=== PATIENT | male | born 1945 | race Caucasian/White ===

== ENCOUNTER 2021-12-30 08:25 | Outpatient (CLI) | payer BC, SELFPAY | END 2021-12-30 08:26 | disposition home or self-care (01) | LOC: LKVREF 01-03 15:01 | PROVIDERS: Visit Provider Emergency Medicine | DX: I10 Essential (primary) hypertension (principal) | CPT/HCPCS: 80061 ==

== ENCOUNTER 2022-10-23 08:14 | Outpatient (CLI) | payer BC, SELFPAY | END 2022-10-23 08:15 | disposition home or self-care (01) | LOC: NFLDREF 16:24 | PROVIDERS: PCP Emergency Medicine; Referring Provider Emergency Medicine; Visit Provider Emergency Medicine | DX: Z00.00 Encounter for general adult medical examination without abnormal findings (principal); E78.5 Hyperlipidemia, unspecified; I10 Essential (primary) hypertension; Z12.5 Encounter for screening for malignant neoplasm of prostate | CPT/HCPCS: 80053; 80061; 84153 ==

== ENCOUNTER 2023-01-09 08:00 | Outpatient (CLI) | payer BC, SELFPAY | END 2023-01-09 08:01 | disposition home or self-care (01) | LOC: NFLDREF 01-11 12:35 | PROVIDERS: PCP Emergency Medicine; Referring Provider Emergency Medicine; Visit Provider Emergency Medicine | DX: E87.5 Hyperkalemia (principal) | CPT/HCPCS: 84132 ==

== ENCOUNTER 2023-11-14 09:10 | Outpatient (CLI) | payer BC, SELFPAY ==
--- OUTSIDE RECORDS SUMMARY | 2023-11-14 09:12 | XMS_ITS | Encounter Summary ---
Author Organization [place] Address [address] [place] [id number] Care Team Providers Care Loan Specialist Name Role Phone [facility] Primary Care Provider Encounter Details Date Type Department Care Team (Latest Contact Info) Description 09/16/2023 Travel Social History Tobacco Use Types Packs/Day Years Used Date Smoking Tobacco: Never Assessed Adolescent Education Answer Date Record ed Getting School Help Needed Not on file 02/28 Sex and Gender Information Value Date Recorded Sex Assigned at Not on file Gender Identity Not on file Sexual Orientation Not on file documented as of this encounter Plan of Treatment Not on file documented as of this encounter Visit Diagnoses Not on filedocumented in this encounter Care Teams Loan Specialist Relationship Specialty Start Date End Date [facility] [address] [place] [address] PCP - General 09/16/23 documented as of this encounter
--- OUTSIDE RECORDS SUMMARY | 2023-11-14 09:12 | XMS_ITS | Clinical Summary ---
Author Organization [place] Address [address] [place] [address]. [place] [address] Care Team Providers Care Etcher Enameling Name Role Phone [facility] Primary Care Provider Allergies No known active allergies Medications Medication Sig Dispensed Refills Start Date End Date Status KENALOG 40 MG/ML IJ SUSPIndications:Pain in the foot,Sinus tarsi syndrome 40 MG 1 TIME ONLY 1 0 10/17/2008 Active Encounters Date Type Department Care Team Description 09/16/2023 4:17 PM CDT - 09/16/2023 7:32 PM CDT [facility] Emergency Dept [address] [place] [address] Hi Villa MD Fall, initial encounter; Closed head injury, initial encounter; Facial laceration, initial encounter; Other displaced fracture of base of first metacarpal bone, right hand, initial encounter for closed fracture; Rib pain on left side Discharge Disposition: Home or Self Care 09/16/2023 Travel from Last 3 Months Immunizations Name Administration Dates Next Due TDAP (Adacel,Boostrix) 09/16/2023 Social History Tobacco Use Types Packs/Day Years Used Date Smoking Tobacco: Never Assessed Adolescent Education Answer Date Record ed Getting School Help Needed Not on file 02/28 Sex and Gender Information Value Date Recorded Sex Assigned at Not on file Gender Identity Not on file Sexual Orientation Not on file Last Filed Vital Signs Vital Sign Reading Time Taken Comments Blood Pressure 170/102 09/16/2023 4:51 PM CDT Pulse 69 09/16/2023 4:30 PM CDT Temperature 36.2 ??C (97.1 ??F) 09/16/2023 4:18 PM CD T Respiratory Rate 18 09/16/2023 4:26 PM CDT Oxygen Saturation 99% 09/16/2023 4:51 PM CDT Inhaled Oxygen Concentration - - Weight 63 kg (139 lb) 09/16/2023 4:18 PM CDT Height 157.5 cm (5' 2) 09/16/2023 4:18 PM CDT Body Mass Index 25.42 09/16/2023 4:18 PM CDT Plan of Treatment Health Maintenance Due Date Last Done Comments ADVANCE CARE PLANNING 1947 ANNUAL REVIEW OF HM ORDERS 1945 GLUCOSE 1945 HEPATITIS C SCREENING 10/18/1965 LIPID 1987 ZOSTER IMMUNIZATION (1 of 2) 10/18/1997 RSV VACCINE ( & 60+) (1 - 1-dose 60+ series) 2007 FALL RISK ASSESSMENT 10/18/2012 MEDICARE ANNUAL WELLNESS VISIT 10/18/2012 Pneumococcal Vaccine: 65+ Years (1 of 1 - PCV) 10/18/2012 COVID-19 Vaccine (5 - season) 2023 03/16/2022, 03/31/2021, 07/26/2020, Additional history exists PHQ-2 (once per calendar year) 2023 INFLUENZA VACCINE (#1) 2024 DTAP/TDAP/TD IMMUNIZATION (3 - Td or Tdap) 09/15/2033 09/16/2023, 09/30/2014 COLORECTAL CANCER SCREENING Discontinued sDNA (Cologuard) Discontinued 10/04/[address] COLONOGRAPHY Discontinued FIT Discontinued FLEX SIG Discontinued HPV IMMUNIZATION Aged Out No longer e ligible based on patient's age to complete this topic IPV IMMUNIZATION Aged Out No longer e ligible based on patient's age to complete this topic MENINGITIS IMMUNIZATION Aged Out No l onger eligible based on patient's age to complete this topic RSV MONOCLONAL ANTIBODY Aged Out No l onger eligible based on patient's age to complete this topic Procedures Procedure Name Priority Date/Time Associated Diagnosis Comments XR HAND RIGHT G/E 3 VIEWS STAT 09/16/2023 5:24 PM CDT XR RIBS AND CHEST LEFT 3 VIEWS STAT 09/16/2023 5:[address] HEAD W/O CONTRAST STAT 09/16/2023 5:10 PM CDT from Last 3 Months Results * XR Hand Right G/E 3 Views (09/16/2023 5:24 PM CDT) Anatomical Region Laterality Modality Hand, Wrist Right Digital Radiogra phy 09/16/2023 5:24 PM CDT Impressions 09/16/2023 5:29 PM CDT IMPRESSION: Normal alignment. Acute minimally displaced fracture of the first metacarpal base. 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 Narrative 09/16/2023 5:29 PM CDT EXAM: XR HAND RIGHT G/E 3 VIEWS LOCATION: [facility] DATE: 09/16/2023 INDICATION: fall, hand injury, tenderness over snuffbox COMPARISON: None. Procedure Note Brett Alexander MD - 09/16/2023 EXAM: XR HAND RIGHT G/E 3 VIEWS LOCATION: [facility] DATE: 09/16/2023 INDICATION: fall, hand injury, tenderness over snuffbox COMPARISON: None. IMPRESSION: Normal alignment. Acute minimally displaced fracture of thefirst metacarpal base. Mild degenerative arthritis involving the first CMCand MCP joints and some of the IP joints. Mike Aguilar PA-C [facility] DIAGNOSTIC IMAGI NG ORDERABLES * Ribs XR, unilat 3 views + PA chest, left (09/16/2023 5:23 PM CDT) Anatomical Region Laterality Modality Chest Left Digital Radiogra phy 09/16/2023 5:23 PM CDT Impressions 09/16/2023 5:27 PM CDT IMPRESSION: No acute left rib fracture. No pleural effusion. No pneumothorax. No infiltrate. Calcifications projecting over the left and right abdomen are nonspecific, some could represent retracted stones. Degenerative changes cervical spine. Narrative 09/16/2023 5:27 PM CDT EXAM: XR RIBS AND CHEST LEFT 3 VIEWS LOCATION: [facility] DATE: 09/16/2023 INDICATION: fall, rib pain and tenderness COMPARISON: None. Procedure Note Brett Alexander MD - 09/16/2023 EXAM: XR RIBS AND CHEST LEFT 3 VIEWS LOCATION: [facility] DATE: 09/16/2023 INDICATION: fall, rib pain and tenderness COMPARISON: None. IMPRESSION: No acute left rib fracture. No pleural effusion. Nopneumothorax. No infiltrate. Calcifications projecting over the left andright abdomen are nonspecific, some could represent retracted stones.Degenerative changes cervical spine. Mike Aguilar PA-C [facility] DIAGNOSTIC IMAGI NG ORDERABLES * CT Head w/o Contrast (09/16/2023 5:10 PM CDT) Anatomical Region Laterality Modality Head, SUBRAD CT NEURO, SUBRA D CT NEURO, UMP CT NEURO, RAD CT Computed Tomography 09/16/2023 5:10 PM CDT Impressions 09/16/2023 5:42 PM CDT IMPRESSION: 1. ??No acute intracranial process. Narrative 09/16/2023 5:42 PM CDT EXAM: CT HEAD W/O CONTRAST LOCATION: [facility] DATE: 09/16/2023 INDICATION: fall, head injury COMPARISON: None. TECHNIQUE: Routine CT Head without IV contrast. Multiplanar reformats. Dose reduction techniques were used. FINDINGS: INTRACRANIAL CONTENTS: No intracranial hemorrhage, extraaxial collection, or mass effect. ??No CT evidence of acute infarct. Mild presumed chronic small vessel ischemic changes. Mild generalized volume loss. No hydrocephalus. VISUALIZED ORBITS/SINUSES/MASTOIDS: No intraorbital abnormality. No paranasal sinus mucosal disease. No middle ear or mastoid effusion. BONES/SOFT TISSUES: Left inferior frontal scalp and left periorbital soft tissue contusion. No acute displaced calvarial fracture. Procedure Note Pavan Bird MD - 09/16/2023 EXAM: CT HEAD W/O CONTRAST LOCATION: [facility] DATE: 09/16/2023 INDICATION: fall, head injury COMPARISON: None. TECHNIQUE: Routine CT Head without IV contrast. Multiplanar reformats.Dose reduction techniques were used. FINDINGS: INTRACRANIAL CONTENTS: No intracranial hemorrhage, extraaxial collection,or mass effect. No CT evidence of acute infarct. Mild presumed chronicsmall vessel ischemic changes. Mild generalized volume loss. Nohydrocephalus. VISUALIZED ORBITS/SINUSES/MASTOIDS: No intraorbital abnormality. Noparanasal sinus mucosal disease. No middle ear or mastoid effusion. BONES/SOFT TISSUES: Left inferior frontal scalp and left periorbital softtissue contusion. No acute displaced calvarial fracture. IMPRESSION: 1. No acute intracranial process. Mike Aguilar PA-C [facility] CT ORDERABLES from Last 3 Months Care Teams Etcher Enameling Relationship Specialty Start Date End Date [facility] [address] [place] [address] PCP - General 09/16/23
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
--- OUTSIDE RECORDS SUMMARY | 2023-11-14 09:12 | XMS_ITS | Referral Summary ---
Author Organization [place] Address [address] [place] [address]. [place] [address] Care Team Providers Care Commercial Art Instructor Name Role Phone Clinic, [facility] Primary Care Provider Encounters Date Type Department Care Team Description 09/16/2023 Travel 09/16/2023 4:17 PM CDT - 09/16/2023 7:32 PM CDT Emergency [facility] Emergency Dept [address] [place] [address] Hi Villa MD Fall, initial encounter; Closed head injury, initial encounter; Facial laceration, initial encounter; Other displaced fracture of base of first metacarpal bone, right hand, initial encounter for closed fracture; Rib pain on left side Discharge Disposition: Home or Self Care from Last 3 Months Allergies No known active allergies Medications Medication Sig Dispensed Refills Start Date End Date Status KENALOG 40 MG/ML IJ SUSPIndications:Pain in the foot,Sinus tarsi syndrome 40 MG 1 TIME ONLY 1 0 10/17/2008 Active Immunizations Name Administration Dates Next Due TDAP [...] 09/16/2023 4:18 PM CDT Plan of Treatment Not on file Procedures Procedure Name Priority Date/Time Associated Diagnosis [...] XR HAND RIGHT G/E 3 VIEWS LOCATION: [facility] DATE: 09/16/2023 INDICATION: fall, hand injury, tenderness over snuffbox COMPARISON: None. Procedure Note Brett Alexander MD - 09/16/2023 EXAM: XR HAND RIGHT G/E 3 VIEWS LOCATION: [facility] DATE: 09/16/2023 INDICATION: fall, hand injury, tenderness over snuffbox COMPARISON: None. IMPRESSION: Normal alignment. Acute minimally displaced fracture of thefirst metacarpal base. Mild degenerative arthritis involving the first CMCand MCP joints and some of the IP joints. Mike Aguilar PA-C [facility] [facility] [place] ORDERABLES * Ribs XR, [...] RIBS AND CHEST LEFT 3 VIEWS LOCATION: [facility] DATE: 09/16/2023 INDICATION: fall, rib pain and tenderness COMPARISON: None. Procedure Note Brett Alexanedr MD - 09/16/2023 EXAM: XR RIBS AND CHEST LEFT 3 VIEWS LOCATION: [facility] DATE: 09/16/2023 INDICATION: fall, rib pain and tenderness COMPARISON: None. IMPRESSION: No acute left rib fracture. No pleural effusion. Nopneumothorax. No infiltrate. Calcifications projecting over the left andright abdomen are nonspecific, some could represent retracted stones.Degenerative changes cervical spine. Mike CARRASCO-Juan [facility] [place] [facility] NG ORDERABLES * CT Head w/o Contrast (09/16/2023 5:10 PM CDT) Anatomical Region Laterality Modality Head, SUBRAD CT NEURO, SUBRA D CT NEURO, UMP CT NEURO, RAD CT Computed Tomography 09/16/2023 5:10 PM CDT Impressions 09/16/2023 5:42 PM CDT IMPRESSION: 1. ??No acute intracranial process. Narrative 09/16/2023 5:42 PM CDT EXAM: CT HEAD W/O CONTRAST LOCATION: [facility] DATE: 09/16/2023 INDICATION: fall, head [...] 09/16/2023 EXAM: CT HEAD W/O CONTRAST LOCATION: [facility] DATE: 09/16/2023 INDICATION: fall, head [...] ORDERABLES from Last 3 Months Care Teams Commercial Art Instructor Relationship Specialty Start Date End Date Clinic, [facility] [address] [place] [address] PCP - General 09/16/23
--- OUTSIDE RECORDS SUMMARY | 2023-11-14 09:12 | XMS_ITS | Continuity of Care Document ---
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 It does not include entries that were removed or entered in error. 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 Diagnosis: ICD-10-CM Z01.118 Encntr for exam of ears and hearing w oth abnormal findings Active Diagnosis [facility] Diagnosis: ICD-10-CM H25.813 Combined forms of age-related cataract, bilateral Active Diagnosis [facility] Diagnosis: ICD-10-CM H90.5 Unspecified sensorineural hearing loss Active Diagnosis [facility] Medications Combined list of outpatient medications from [facility] facilities.Medications provided include 1) outpatient medications from the last 15 months, and 2) patient-reported medications. Medication Details Route Status Patient Instructions Prescription Expires Prescription Number Last Dispense Date Ordering Provider Order Date Order Qty Source LATANOPROST 0.005% SOLN,OPH LATANOPR OST 0.005% SOLN,OPH Active INSTILL 1 DROP IN BOTH EYES AT BEDTIME TO LOWER EYE PRESSURE TO LOWER EYE PRESSURE Jul 30, 2023 7.5 Jul 30, 2024 [id number] Nov 01, 2023 HUEY REGAN [facility] OPHTHA LMIC ACTIVE 07/30/2024 [id number] Maria REGAN 2023 7.5 [facility] Encounters Combined list of: 1) Encounters from [facility] facilities going back up to thelast 18 months. 2) Encounters from the Department [facility] facilities going back up to 280 months. Location Location Details Encounter Type Encounter Number Reason For Visit Attending Provider ADM Date DC Date Status Disposition Source [facility] Outpatient Encounter [id number] 10/11 [facility] PRO PHONE CALL 11-20 MIN [id number] Diagnos is: ICD-10- CM H90.5 Unspeci fied sensori neural hearing loss
CLAUDETTE DELACRUZ C 11/01 [facility] IS [facility] HEARING AID FITTING/CH ECKING [id number] Diagnos is: ICD-10- CM H90.5 Unspeci fied sensori neural hearing loss
BY[place] HILL 11/18 [facility] OFFICE O/P NEW LOW 30 MIN [id number] Diagnos is: ICD-10- CM H25.813 Combine d forms of age-rel ated catarac t, bilater al
LUNA REGAN 07/[address] [facility] IS [facility] Outpatient Encounter [id number] 08/07 [facility] IS [facility] HEARING AID EXAM BOTH EARS [id number] Diagnos is: ICD-10- CM Z01.118 Encntr for exam of ears and hearing w oth abnorma l finding s
ROSARIO HERNANDEZ AEL F 08/20 [facility] IS [facility] CONFORMITY EVALUATION [id number] Diagnos is: ICD-10- CM H90.3 Sensori neural hearing loss, bilater al
ROSARIO HERNANDEZ AEL F 09/17 [facility] OFFICE O/P EST LOW 20 MIN [id number] Diagnos is: ICD-10- CM H40.113 1 Primary open-an gle glaucom a, bilater al, mild stage<b r/> LUNA REGAN 10/29 [facility] Plan of Care List of future care activities from [facility] facilities. Additional future care activities may be listed in the Assessment and Plan section. Date/Time Care Activity Care Activity Detail Facili ty 11/29/2023 AMBULATORY - SURGERY AMBULATORY - SURGERY [facility] 11/29/2023 AMBULATORY - SURGERY AMBULATORY - SURGERY [facility] 10/30/2023 Consult Order OPHTHALMOLOGY-GE DAPHNE OUTPT Cons Race Starter's Choice GLEN SOTOMAYOR
--- OUTSIDE RECORDS SUMMARY | 2023-11-14 09:13 | XMS_ITS | Encounter Summary ---
Author Name [facility] [place] Address [address] [place] [address] Support Name Relationship Address Phone JONATHAN NITZA LENCHO Next of Kin JORJE [place], [place] [phone] NITZA CASTILLO [place] [address] Insurance Providers: All historical and current Section Date Range: From patient's date of to the date document was created. This section includes the names of all active insurance providers for the patient. Insurance Provider Type of Coverage Plan Name Start of Policy Coverage End of Policy Coverage Group Number Member ID Insurance Provider's Telephone Number Policy Moyer's Name Patient's Relationship to Policy Moyer MEDICARE (WNR) MEDICARE (M) PART B Nov 11, 2013 PART B [id number] [phone] LETICIA CASTILLO PATIENT MEDICARE (WNR) MEDICARE (M) PART A Jan 12, 2013 PART A [id number] [phone] LETICIA CASTILLO PATIENT Selected Encounter This section includes the information on record at [place] for the Encounter. Date/Time Encounter Type Encounter Description Reason Provider Source September 18, 2023 12:30 PM CONFORMITY EVALUATION AUDIOLOGY ICD-10-CM H90.3 Sensorineural hearing loss, bilateral ELEAZAR HERNANDEZ [place] Encounter Template Text not used by [place] Assessments - Encounter Diagnoses This section includes the primary and secondary diagnoses documented for the Encounter. Date/Time Primary/Secondary Diagnosis Diagnosis Name Provider Source September 18, 2023 04:08 PM PRIMARY Sensorineural hearing loss, bilateral ELEAZAR HERNANDEZ [facility] September 18, 2023 04:08 PM SECONDARY Encounter for fitting and adjustment of hearing aid ELEAZAR HERNANDEZ [facility] Plan of Treatment: Future Appointments (+ 6 months) and Future Tests (+/- 45 days) The Plan of Treatment section includes future care activities for the patient [facility] This section includes future appointments and future orders which are active, pending or scheduled. Future Appointments This section includes appointments that were scheduled to occur 6 months from the date of the Encounter, up to a maximum of 20 appointments. The data comes from all [facility]. Appointment Date/Time Appointment Type Appointme nt Facility Name Oct 30, 2023 01:00 PM AMBULATORY - SURGERY [facility] Nov 29, 2023 08:00 AM AMBULATORY - SURGERY [facility] Nov 29, 2023 08:30 AM AMBULATORY SURGERY [facility] Active, Pending, and Scheduled Orders This section includes a listing of several types of active, pending, and scheduled orders, including clinic medications orders, diagnostic test orders, procedure orders and consult orders; where the start date of the order is 45 days before the date of the Encounter or 45 days after the date of theEncounter. The data comes from all [facility]. Test Date/Time Test Type Test Details Facility Name Oct 30, 2023 01:32 PM Consult Order OPHTHALMOL OGY-GENERAL OUTPT Cons Roll Clamp Operator's Choice [facility] Encounter Notes: All associated encounter notes This section contains the clinical notes associated to the Encounter. Date/Time Encounter Note(s) Provider Source September 18, 2023 12:20 PM AUDIOLOGY NOTE: LOCAL TITLE: AUDIOLOGY CLINIC NOTE STANDARD TITLE: AUDIOLOGY NOTE DATE OF NOTE: SEPTEMBER 18, 2023@12:20 ENTRY DATE: SEPTEMBER 18, 2023@12:20:31 AUTHOR: ELEAZAR HERNANDEZ EXP COSIGNER: URGENCY: STATUS: COMPLETED AUDIOLOGY CLINIC NOTE Has ADDENDA Hearing Aid Fitting Sensorineural hearing loss, bilateral. Total patient time: 60 minutes Subjective: The was seen for a hearing aid fitting and issuance of two Phonak Audeo L90-R hearing aids (S#: [id number] (R)/ [id number] (L)). The is an experienced hearing aid user. Objective: Otoscopy revealed clear ear canals and visible tympanic membranes. Custom molds were judged to be a good fit. Feedback global engineering manager was run prior to programming. The hearing aids were adjusted to approximate NAL-NL2 speech mapping targets using real-ear probe microphone measures (conformity evaluation). The devices were programmed to 100% target, per preference. The reported positive subjective impression about the sound quality and fit of the hearing aids. They reported tolerable and comfortable impression with extraneous sounds, as well as their own voice. Start-up program is P1, [employer] ([email or web address]) OS, 5.0. No second memory was added at this time. Assigned the program button as the volume control with binaural sync, and it's use was explained and practiced. The streamer was successfully paired to 's cellular telephone and verified to work properly. Streamer/remote control functions for volume and bluetooth were also reviewed. Education was provided, utilizing standardized curriculum, for approximately 30 minutes regarding care, cleaning, maintenance, use of hearing aids and the trial period. Hearing aid insertion/removal was practiced. The was informed on the supply ordering procedure, water and dust resistance of hearing aids, battery life, and hearing aid features. The Unity's address was confirmed in [facility]. Acclimatization period, use of communication strategies and realistic expectations in light of the Unity's hearing status were discussed. Assessment: Educational needs, ability and readiness to learn, and barriers to successful education have been considered. Printed educational materials on use and care of hearing aids have been provided and were explained verbally to the Unity. The Unity verbalized understanding of information provided today and demonstrated the ability to perform necessary tasks for successful hearing aid use. We talked about sending the 's now back-up hearing aids ([id number] / [id number]) out for repair today. In the process of discussing them, the right canal lock broke off, so now I definitely want to send both out for repair for excessive battery drain and right earmold repair. I will send these off today. Plan: The was an active participant in today's appointment and was agreeable to the treatment plan: 1. The Unity was directed to call if soreness or problems arise. 2. The Unity was advised in regards to follow-up process for these hearing aids, including general follow-up instructions in the time of COVID. They were advised to contact the clinic if they have needs with either his hearing or his hearing aids going forward. 3. Back-up hearing aids mailed for repair today. Upon receipt, they can be mailed to the 's address on file. This treatment plan was discussed with the patient. The patient verbally demonstrated an understanding of the information provided and actively participated in the treatment plan. /jorge/ Rene Cordova Ph.D. Regional Telecommunications Specialist Chief, Audiology Signed: 09/18/2023 16:08 09/18/2023 ADDENDUM STATUS: COMPLETED Correction to plan: I had to submit two service requests for the right hearing aid. Upon receipt of earmold, hold for repaired hearing aids, then couple new earmold and mail. If the hearing aids arrive first, please hold for the earmold, then same story, couple and mail. /Rene Torres Ph.D. Regional Telecommunications Specialist Chief, Audiology Signed: 09/18/2023 17:23 09/28/2023 ADDENDUM STATUS: COMPLETED HOLDING RIGHT EARMOLD ON ABC UNTIL REPAIRED HEARING AIDS ARE RECEIVED COUPLE EARMOLD WITH HEARING AID AND MAIL TO THE ADDRESS ON FILE /jorge/ ELEAZAR Ramon [employer] HEALTH YARDING SUPERVISOR Signed: 09/28/2023 07:20 09/28/2023 ADDENDUM STATUS: COMPLETED COUPLING NEW RIGHT EARMOLD TO REPAIRED RIGHT HEARING AID. MAILING REPAIRED HEARING AIDS TO THE ADDRESS ON FILE /elsie [employer] HEALTH YARDING SUPERVISOR Signed: 09/28/2023 07:[address] [facility]
--- OUTSIDE RECORDS SUMMARY | 2023-11-14 09:13 | XMS_ITS | Encounter Summary ---
Author Name [facility] [place] [facility] [place] [facility] [place] Address [address] [place] [address] Support Name Relationship Address Phone JONATHAN NITZA LENCHO Next of Kin JORJE NEELA [place], [place] [phone] NITZA CASTILLO Emergency Contact I PARAG [place], [place] [phone] Insurance Providers: All historical and current Section [...] PART B Nov 11, 2013 PART B [id number] LETICIA CASTILLO PATIENT MEDICARE (WNR) MEDICARE (M) PART A Jan 12, 2013 PART A [id number] LETICIA CASTILLO PATIENT Selected Encounter This section includes the information on record at [place] for the Encounter. Date/Time Encounter Type Encounter Description Reason Provider Source Jul 30, 2023 01:00 PM OFFICE O/P NEW LOW 30 MIN OPTOMETRY ICD-10-CM H25.813 Combined forms of age-related cataract, bilateral REGAN,LEA IA M IHE Encounter Template Text not used by [facility] Assessments - Encounter Diagnoses This section includes the primary and secondary diagnoses documented for the Encounter. Date/Time Primary/Secondary Diagnosis Diagnosis Name Provider Source Jul 30, 2023 02:23 PM PRIMARY Combined forms of age-related cataract, bilateral REGAN,LEA IA M [facility] Jul 30, 2023 02:23 PM SECONDARY Benign neoplasm of left choroid REGANLEA CB Jul 30, 2023 02:23 PM SECONDARY Myopia, bilateral REGAN,LEA [facility] Jul 30, 2023 02:23 PM SECONDARY Presbyopia REGANLEA CB Jul 30, 2023 02:23 PM SECONDARY Regular astigmatism, bilateral REGAN,LEA [facility] Jul 30, 2023 02:23 PM SECONDARY Unspecified open-angle glaucoma, indeterminate stage REGANLEA Rios [facility] Plan of Treatment: Future Appointments (+ 6 months) and Future Tests (+/- 45 days) The Plan of Treatment section includes future care activities for the patient from all [place] [facility]. This section includes future appointments and future orders which are active, pending or scheduled. Future Appointments This section includes appointments that were scheduled to occur 6 months from the date of the Encounter, up to a maximum of 20 appointments. The data comes from all [place] treatment facilities. Appointment Date/Time Appointment Type Appointme nt Facility Name Aug 21, 2023 12:30 PM AMBULATORY - SURGERY [facility] September 18, 2023 12:30 PM AMBULATORY - SURGERY [facility] Oct 30, 2023 01:00 PM AMBULATORY - SURGERY [facility] Nov 29, 2023 08:00 AM AMBULATORY - SURGERY [facility] Nov 29, 2023 08:30 AM AMBULATORY - SURGERY [facility] Encounter Notes: All associated encounter notes This section contains the clinical notes associated to the Encounter. 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 Discussed option to continue with Dr. Kmi with [facility] or continue eye care with [facility]: Patient would like to be seen for eye care with [facility] in 3 months: will place order for this today. /jorge/ HUEY REGAN OD VENEER CUTTER Signed: 08/01/2023 16:58 HUEY REGAN [facility] Aug 01, 2023 04:52 PM ADDENDUM: LOCAL TITLE: Addendum STANDARD TITLE: ADDENDUM DATE OF NOTE: AUG 01, 2023@16:52:13 ENTRY DATE: AUG 01, 2023@16:52:14 AUTHOR: HUEY REGAN EXP COSIGNER: URGENCY: STATUS: COMPLETED See patient contact note from 08/01/2023: [facility] is [id number] for [place] eye [place] coverage per [facility] Scheduling Staff. Patient would like to be seen for eye care with [facility] in 3 months: will place order for this today. /jorge/ HUEY REGAN OD VENEER CUTTER Signed: 08/01/2023 16:54 Receipt Acknowledged By: 08/02/2023 11:15 /jorge/ KAJAL MONTGOMERY APRN, CASIMIRO FAMILY NURSE PRACTITIONER --- Original Document --- 07/30/23 OPTOMETRY CLINIC NOTE: Reviewed tech note today and agree except where noted and ADD: CC:Eye exam. Patient is followed by Amrik Kim, OD with [facility] for ophthalmological care including monitoring of glaucoma/ cataracts OU. Patient states that he takes latanoprost: QHS OU. Last dose of latanoprost OU was at midnight last night. Patient wants to order his [facility]op[facility] via the [facility]. Patient wants to continue care at [facility] with Dr. Kim, last appt ~ 3 months ago: is followed q [address] Kim. Wants to updated his glasses today. HPI:Patient denies any pain, double vision, transient blindness, sudden vision loss. Patient denies any flashing lights, curtain or veil over vision. Patient has no other concerns today. Eye meds: latanoprost QHS OU MALU:~ 3 months ago per patient with Dr. Kim @ [facility]. POHx: glaucoma/cataracts PMHx: per tech. FOhx: per tech. Systemic medications: rosuvastatin, lisinopril. Allergies: patient answered NKDA. Last Hgb A1c: unavailable. Pt oriented and alert x 3 Mood and affect normal Entering distance [facility] cc per tech : OD:20/20 OS:20/25-2 Cover test distance: ortho OU MR/ Final SRX today: OD: -0.75-0.50x 085 20/20-3 OS: -0.25 -1.75 x 045 20/20 ADD:+2.50 IOP: OD: 22 OS: 16 per tech DPAs: per tech SLEx (OU unless otherwise noted): Adnexa: clear Lids/Lashes: clear Conj: White and quiet Cornea: Clear/compact OU A/C: Deep and quiet Iris: flat, (-) rubeosis Lens: 1+ NSC with posterior vacuole centrally OD, posterior vacuole with PSC OS. Tear film: adequate Dilated eye exam: YES Fundus Exam (OU unless otherwise noted): ONH: 0.3 OD; 0.45 OS; Rim tissue well perfused and distinct OU OD: tilted insertion OD. OU: no edema, no pallor, no notch, no DH, no NVD. Macula: clear and flat; no hemes, no CSME. Vessels: Normal caliber; OU: no retinopathy, no occlusion, no emboli, no hemes, no NVE, no VB. Vitreous: clear ; OU: no vitreous cell, no VH, no vitreous pigment. Periphery: Flat and intact with no holes or tears 360'; OU: no RT, no RD, no masses, no retinal break, no retinopathy, no hemes, no NVE. OS: flat c. nevus vs c. tesselation, 1.5 DD, at 6 oclock without retinal break, no RT, no RD. Assessment/Plan: 1.Cataracts, combined OU. Presurgical OU. Continue to monitor with Amrik Kim, OD with [facility] as scheduled in 3 months, sooner if any changes. 2. OAG, unspecifed stage OU. IOP today: Patient wishes to continue monitoring as scheduled in 3 months with Amrik Kim, OD with [facility]. Discussed importance of continuing latanoprost QHS OU as prescribed by Dr. Kim. Ordered latanoprost for today: QHS OU. 3. RE/ Presbyopia OU. Released updated glasses Rx OU with transitions/ AR/ uV protection/ tint due to cataracts OU. continue to monitor with Dr. Kim as scheduled, sooner if any changes. 4. C. tesselation inferiorly OS vs c. nevus OS. No retinal break, no RD, no RT, no SRF. Continue to monitor with Dr. Kim as scheduled in 3 months, sooner if any chnages. Reviewed exam findings OU including PLAN with patient. Educated patient about PLAN including symptoms of RT/ RD: RTC immediately if any loss of vision, shadows in vision, floaters, flashing lights, curtain or veil over vision and/or any other changes with either and/or both eyes. RTC: in 3 months as scheduled with Amrik Kim, OD with [facility], sooner if any changes. Will alert [facility] Scheduling Staff to continue [facility] care with Dr. Kim. RTC: with [facility] in 1 year for VTDMRX for glasses and eye meds. Is the patient legally blind? 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 EBMD = Epithelial basement membrane dystrophy CF = count fingers CVF = Confrontation visual smiley /es/ HUEY REGAN OD VENEER CUTTER Signed: 07/30/2023 14:23 Receipt Acknowledged By: 07/31/2023 06:45 /jorge/ KAJAL MONTGOMERY APRN, ELECTRICAL CONTROL ASSEMBLER FAMILY NURSE PRACTITIONER HUEY REGAN [facility] Jul 30, 2023 01:24 PM OPTOMETRY NOTE: LOCAL TITLE: OPTOMETRY CLINIC NOTE STANDARD TITLE: OPTOMETRY NOTE DATE OF NOTE: JUL 30, 2023@13:24 ENTRY DATE: JUL 30, 2023@13:24:11 AUTHOR: HUEY REGAN EXP COSIGNER: URGENCY: STATUS: COMPLETED OPTOMETRY CLINIC NOTE Has ADDENDA Reviewed tech note today and agree except where noted and ADD: CC:Eye exam. Patient is followed by Amrik Kim, OD with [facility] for ophthalmological care including monitoring of glaucoma/ cataracts OU. Patient states that he takes latanoprost: QHS OU. Last dose of latanoprost OU was at midnight last night. Patient wants to order his [facility]. Patient wants to continue care at [facility] with Dr. Kim, last appt ~ 3 months ago: is followed q [address] Kim. Wants to updated his glasses today. HPI:Patient denies any pain, double vision, transient blindness, sudden vision loss. Patient denies any flashing lights, curtain or veil over vision. Patient has no other concerns today. Eye meds: latanoprost QHS OU MALU:~ 3 months ago per patient with Dr. Kim @ [facility]. POHx: glaucoma/cataracts PMHx: per tech. FOhx: per tech. Systemic medications: rosuvastatin, lisinopril. Allergies: patient answered NKDA. Last Hgb A1c: unavailable. Pt oriented and alert x 3 Mood and affect normal Entering distance [facility] cc per tech : OD:20/20 OS:20/25-2 Cover test distance: ortho OU MR/ Final SRX today: OD: -0.75-0.50x 085 20/20-3 OS: -0.25 -1.75 x 045 20/20 ADD:+2.50 IOP: OD: 22 OS: 16 per tech DPAs: per tech SLEx (OU unless otherwise noted): Adnexa: clear Lids/Lashes: clear Conj: White and quiet Cornea: Clear/compact OU A/C: Deep and quiet Iris: flat, (-) rubeosis Lens: 1+ NSC with posterior vacuole centrally OD, posterior vacuole with PSC OS. Tear film: adequate Dilated eye exam: YES Fundus Exam (OU unless otherwise noted): ONH: 0.3 OD; 0.45 OS; Rim tissue well perfused and distinct OU OD: tilted insertion OD. OU: no edema, no pallor, no notch, no DH, no NVD. Macula: clear and flat; no hemes, no CSME. Vessels: Normal caliber; OU: no retinopathy, no occlusion, no emboli, no hemes, no NVE, no VB. Vitreous: clear ; OU: no vitreous cell, no VH, no vitreous pigment. Periphery: Flat and intact with no holes or tears 360'; OU: no RT, no RD, no masses, no retinal break, no retinopathy, no hemes, no NVE. OS: flat c. nevus vs c. tesselation, 1.5 DD, at 6 oclock without retinal break, no RT, no RD. Assessment/Plan: 1.Cataracts, combined OU. Presurgical OU. Continue to monitor with Amrik Kim, ELISEO with [facility] as scheduled in 3 months, sooner if any changes. 2. OAG, unspecifed stage OU. IOP today: Patient wishes to continue monitoring as scheduled in 3 months with Amrik Kim, OD with [facility]. Discussed importance of continuing latanoprost QHS OU as prescribed by Dr. Kim. Ordered latanoprost for today: QHS OU. 3. RE/ Presbyopia OU. Released updated glasses Rx OU with transitions/ AR/ uV protection/ tint due to cataracts OU. continue to monitor with Dr. Kim as scheduled, sooner if any changes. 4. C. tesselation inferiorly OS vs c. nevus OS. No retinal break, no RD, no RT, no SRF. Continue to monitor with Dr. Kim as scheduled in 3 months, sooner if any chnages. Reviewed exam findings OU including PLAN with patient. Educated patient about PLAN including symptoms of RT/ RD: RTC immediately if any loss of vision, shadows in vision, floaters, flashing lights, curtain or veil over vision and/or any other changes with either and/or both eyes. RTC: in 3 months as scheduled with Amrik Kim, OD with [facility], sooner if any changes. [facility] care with Dr[facility] Kim. RTC: with [facility] in 1 year for VTDMRX for glasses and eye meds. Is the patient legally blind? 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 Patient would like to be seen for eye care with [facility] in 3 months: will place order for this today. /jorge/ HUEY REGAN OD VENEER CUTTER Signed: 08/01/2023 16:54 Receipt Acknowledged By: * AWAITING SIGNATURE * KAJAL MONTGOMERY PATRICIA M [facility] Jul 30, 2023 12:54 PM OPHTHALMOLOGY TECH GINNA NOTE: LOCAL TITLE: DIPLOMATIC INTERPRETER/TRANSLATOR NOTE STANDARD TITLE: DIPLOMATIC INTERPRETER/TRANSLATOR NOTE DATE OF NOTE: JUL 30, 2023@12:54 ENTRY DATE: JUL 30, 2023@12:54:21 AUTHOR: ZOILA CANSECO EXP COSIGNER: URGENCY: STATUS: COMPLETED Eye Start Exam Patient: LETICIA CASTILLO Sex: MALE SSN: [id number] Birthdate: [birth year] Chief complaint: patient states I feel that my vision has changed and I can't get my glasses clean anymore I see doctor Judy in [place] to manage my glaucoma History of Present Illness: Location: Intensity: Duration: Problem List - Active - NONE FOUND Surgeries: SURGERIES - NONE FOUND Full Exam Eye Medications latanoprost ou qhs Allergies: No Allergy Assessment No new Allergies. Past Medical History: Hypertension High cholesterol Cancer Past eye history: Cataracts : OU Past eye surgeries: Denies all Social History: Alcohol use - Yes Tobacco use - No Family History: Eye disease: glaucoma High blood pressure Heart disease or stroke: Last refraction: Vision: OD:CC(with glasses) OD: 20/20 Pinhole: 20/ Near: 20/ Vision: OS:CC(with glasses) 0S: 20/25-2 Pinhole: 20/ Near: 20/ Current glasses: OD:-0.25 -0.75X85 Prism: OS:plano -1.75X42 Prism: Add: +2.50 Confrontational Smiley: Full to finger counting: Right: Yes Left: Yes Extra Ocular Movement: Normal Pupils: Right: Round Left: Round Size: Right: 4 Left: 4 React to light: Right: Yes Left: Yes Afferent pupil defect: Right:No Grade: Left: No Grade: Note: Intra-ocular pressure (IOP): OD: 22 OS: 16 iCare Dilation: mydriacyl 1% and neosynephrine OU Jul@13:06 /jorge/ ZOILA CANSECO OPHTHALMOLOGY HEALTH BUDDER Signed: 07/30/2023 13:07 ZOILA CANSECO [facility]OC
--- OUTSIDE RECORDS SUMMARY | 2023-11-14 09:13 | XMS_ITS | Encounter Summary ---
Author Name [facility] [place] Organization [place] Address [address] [place] [address] Support Name Relationship Address Phone JONATHAN NITZA LENCHO Next of Kin JORJE NEELA [place], [place] [phone] NITZA CASTILLO [place] [address] Insurance Providers: All historical and [...] PART B Nov 11, 2013 PART B [id number] [phone] LETICIA CASTILLO PATIENT MEDICARE (WNR) MEDICARE (M) PART A Jan 12, 2013 PART A [id number] [phone] LETICIA CASTILLO PATIENT Selected Encounter This section includes the information on record at [place] for the Encounter. Date/Time Encounter Type Encounter Description Reason Pro vider Source Aug 08, 2023 01:11 PM Outpatient Encounter OPTOMETRY IHE Encounter Template Text not used by [facility] Plan of Treatment: Future Appointments (+ 6 months) and Future Tests (+/- 45 days) The Plan of Treatment section includes future care activities for the patient from all [place] treatmentfacilities. This section includes future appointments and future orders which are active, pending or scheduled. Future Appointments This section includes appointments that were scheduled to occur 6 months from the date of the Encounter, up to a maximum of 20 appointments. The data comes from all [place] treatment facilities. Appointment Date/Time Appointment Type Appointme nt Facility Name Aug 21, 2023 12:30 PM AMBULATORY - SURGERY [facility] September 18, 2023 12:30 PM AMBULATORY - SURGERY [facility] Oct 30, 2023 01:00 PM AMBULATORY - SURGERY [facility] Nov 29, 2023 08:00 AM AMBULATORY - SURGERY [facility] Nov 29, 2023 08:30 AM AMBULATORY - SURGERY [facility] Encounter Notes: All associated encounter notes This section contains the clinical notes associated to the Encounter. Date/Time Encounter Note(s) Provider Source Aug 08, 2023 01:11 PM REPORT OF CONTACT: LOCAL TITLE: APPOINTMENT SCHEDULING NOTE STANDARD TITLE: REPORT OF CONTACT DATE OF NOTE: AUG 08, 2023@13:11 ENTRY DATE: AUG 08, 2023@13:11:24 AUTHOR: GUMARO ALANIS EXP COSIGNER: URGENCY: STATUS: COMPLETED Attempted to schedule Return to clinic (RTC) Contact attempt made to [place] 1st attempt Telephone 2nd attempt Letter - Sent letter by regular [place] mail to address on file: LETICIA CASTILLO [address] [address] Disposition order request after Aug Left message on voice mail to call back to this number [phone] Other: [facility] on [phone] If calls back, schedule appt for: [facility] TECH VISUAL FIELD for HVF PID [id number] and [facility] OPTOM W for HVF/VTD/RNFL OCT/Pachy PID [id number] /jorge/ GUMARO [facility] Signed: 08/08/2023 13:13 GUMARO ALANIS [facility]
--- OUTSIDE RECORDS SUMMARY | 2023-11-14 09:13 | XMS_ITS | Encounter Summary ---
Author Name [facility] [place] Organization [place] Address [address] [place] [address] Support Name Relationship Address Phone NITZA CASTILLO Next of Kin JORJE [place], [place] [phone] NITZA CASTILLO Emergency Contact I PARAG [place], [place] [phone] Insurance Providers: All historical and current Section [...] PART B Nov 11, 2013 PART B [id number] [phone] LETICIA CASTILLO PATIENT MEDICARE (WNR) MEDICARE (M) PART A Jan 12, 2013 PART A [id number] [phone] LETICIA CASTILLO PATIENT Selected Encounter This section includes the information on record at [place] for the Encounter. Date/Time Encounter Type Encounter Description Reason Provider Source Aug 21, 2023 12:30 PM HEARING AID EXAM BOTH EARS AUDIOLOGY ICD-10-CM Z01.118 Encntr for exam of ears and hearing w oth abnormal findings ELEAZAR HERNANDEZ [place] Encounter Template Text not used by [place] Assessments - Encounter Diagnoses This section includes the primary and secondary diagnoses documented for the Encounter. Date/Time Primary/Secondary Diagnosis Diagnosis Name Provider Source Aug 22, 2023 10:21 AM PRIMARY Encntr for exam of ears and hearing w oth abnormal findings ELEAZAR HERNANDEZ [facility] Aug 22, 2023 10:21 AM SECONDARY Encounter for fitting and adjustment of hearing aid ELEAZAR HERNANDEZ [facility] Aug 22, 2023 10:21 AM SECONDARY Sensorineural hearing loss, bilateral ELEAZAR HERNANDEZ [facility] Plan of Treatment: Future Appointments (+ 6 months) and Future Tests (+/- 45 days) The Plan of Treatment section includes future care activities for the patient from all [place] [facility]. This section includes future appointments and future orders which are active, pending or scheduled. Future Appointments This section includes appointments that were scheduled to occur 6 months from the date of the Encounter, up to a maximum of 20 appointments. The data comes from all [facility]. Appointment Date/Time Appointment Type Appointme nt Facility Name September 18, 2023 12:30 PM AMBULATORY - SURGERY [facility] Oct 30, 2023 01:00 PM AMBULATORY - SURGERY [facility] Nov 29, 2023 08:00 AM AMBULATORY - SURGERY [facility] Nov 29, 2023 08:30 AM AMBULATORY - SURGERY [facility] Encounter Notes: All associated encounter notes This section contains the clinical notes associated to the Encounter. Date/Time Encounter Note(s) Provider Source Aug 21, 2023 01:04 PM AUDIOLOGY NOTE: LOCAL TITLE: AUDIOLOGY CLINIC NOTE STANDARD TITLE: AUDIOLOGY NOTE DATE OF NOTE: AUG 21, 2023@13:04 ENTRY DATE: AUG 21, 2023@13:04:45 AUTHOR: ELEAZAR HERNANDEZ EXP COSIGNER: URGENCY: STATUS: COMPLETED Hearing Aid Evaluation Sensorineural hearing loss, bilateral. Bilateral tinnitus. Time Spent: 60 Minutes S: History [place] presented today for an updated hearing evaluation. He is a current user of binaural Phonak Audeo M90-R hearing aids from 2019 (SN: [id number] and [id number]), which he reports well, though he documents noticed deficit in hearing. He is interested in pursuing new amplification at this time. has reported a bilateral tinnitus. He denies otalgia, otorrhea, and aural pressure. Please see the most recent primary care progress note for a more in depth review of other health systems. is service connected for hearing loss and tinnitus at present. O: Audiological Evaluation Otoscopy: Right & Left: Partially occluded canals, bilaterally. Partial visualization of tympanic membranes achieved. Tympanometry: Right & Left: Tympanometry was attempted, but a seal could not be obtained in either ear. Pure-tone Audiometry of air-conduction and bone-conduction: Right & Left: A mild sloping to severe sensorineural hearing loss in both ears. Compared to evaluations from 2019 and 2016, thresholds are stable at this time. Word recognition testing: Speech recognition thresholds were in good agreement with 3-frequency pure-tone averages. Tested at 80 dB HL, word recognition was 96% in the right ear and 88% in the left ear, judged to be excellent, bilaterally. These word recognition scores are slightly higher than the exam from 4 years previous. A CPRS version of the audiogram is available under the Tools pull-down menu. Click Specialty PSL > Audiology > Audiogram Display to view pure-tone and speech data. Visual inspection and biologic listening check revealed weak aids. A: Impressions 's sensorineural hearing loss can be expected to continue to result in significant communication problems, especially in noisy listening environments. He remains a candidate for binaural amplification and is eligible for [place] hearing [place] benefits. A hearing aid discussion was held, covering topics of style, comfort, and realistic expectations. The decision was made to proceed with binaural Phonak Audeo L90-R hearing aids (dot compliance specialist size 1-P, c-shell with canal lock, silver garcia). Earmold scans were confirmed on file with phonak, and an order was placed. The [place] will return for a hearing aid fitting. P: Recommendations 1. Return to clinic order in for the [place] to return for a hearing aid fitting. Test results and treatment plan discussed with patient. The patient verbally demonstrated an understanding of the information provided and actively participated in the treatment plan. /jorge/ Rene Cordova Ph.D. Housekeeper Supervisor Chief, Audiology Signed: 08/22/2023 10:25 ELEAZAR HERNANDEZ [facility]
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
== END 2023-11-14 09:11 | disposition home or self-care (01) ==
LOC: LKVREF 09:11
PROVIDERS: PCP Emergency Medicine; Visit Provider Emergency Medicine
DX: Z00.00 Encounter for general adult medical examination without abnormal findings (principal); I10 Essential (primary) hypertension; E78.2 Mixed hyperlipidemia; Z12.5 Encounter for screening for malignant neoplasm of prostate; E87.5 Hyperkalemia
CPT/HCPCS: 80053; 80061; G0103

== ENCOUNTER 2024-01-10 20:36 | Emergency (ER) | payer MEDICARE, SELFPAY ==
[2024-01-10 20:48] VITALS: BP 142/106; PULSE 69; RESP 16; TEMP 36.2; O2SAT 99; BMI 25.2
--- NOTE | 2024-01-10 20:56 | CRLHL7_ITS ---
For Patients: As a result of the Century Cures Act, medical imaging exams and procedure reports are released immediately into your electronic medical record. You may view this report before your referring provider. If you have questions, please contact your health care provider. Indication: Left abdominal/flank pain, history of kidney stones Technique: Noncontrast CT through the abdomen and pelvis with multiplanar reformats. Comparison: CT abdomen pelvis performed 04/08/2012 Findings: Lower chest: Mild bibasilar atelectasis and/or scarring. Hepatobiliary: No significant parenchymal abnormality is appreciated. Spleen: Unremarkable. Pancreas: No acute abnormality appreciated. Adrenal glands: No acute abnormality appreciated. Kidneys: Bilateral nonobstructing renal stones. Mild right hydronephrosis and hydroureter. Bowel: No obstruction. No focal perienteric or pericolonic stranding is appreciated. The appendix is visualized and appears unremarkable. Vascular: Calcified atherosclerosis. Lymph nodes: No gross lymphadenopathy. Peritoneum: No free air. No free fluid. : Obstructing right distal ureteral stone measures 5 millimeters. Soft tissues: No acute abnormality appreciated. Fat containing left greater than right inguinal hernias. Bones: No acute fracture. No lytic or blastic lesion. Degenerative changes of the spine and pelvis. Impression: 1. Obstructing right distal ureteral stone measures 5 millimeters with mild hydronephrosis. 2. Additional nonobstructing bilateral renal stones are present. Please note that all CT scans at this facility use dose modulation, iterative reconstruction, and/or weight-based dosing when appropriate to reduce radiation dose to as low as reasonably achievable. Dictated by Sukhjinder Hooks MD @ 01/10/2024 10:08:16 PM (Electronically Signed)
--- OUTSIDE RECORDS SUMMARY | 2024-01-10 22:13 | XMS_ITS | Referral Summary ---
Author Organization [place] Address [address] [place] [address]. [place] [address] Care Team Providers Care Spray Cementer Name Role Phone Clinic, [facility] Primary Care Provider Allergies No known [...] CDT Plan of Treatment Not on file Care Teams Spray Cementer Relationship Specialty Start Date End Date Clinic, [facility] [address] [facility] [place] [address] PCP - General 09/16/23
--- OUTSIDE RECORDS SUMMARY | 2024-01-10 22:13 | XMS_ITS | Clinical Summary ---
Author Organization [place] Address [address] [place] [address]. [place] [address] Care Team Providers Care Paver Layer Name Role Phone Clinic, [facility] Primary Care Provider Allergies No known [...] IMMUNIZATION (1 of 2) 10/18/1997 RSV VACCINE (1 - 1-dose 60+ series) 2007 FALL RISK ASSESSMENT 10/18/2012 MEDICARE ANNUAL WELLNESS VISIT 10/18/2012 Pneumococcal Vaccine: 65+ Years (1 of 1 - PCV) 10/18/2012 COVID-19 Vaccine ( - season) 2023 03/16/2022, 03/31/2021, 07/26/2020, Additional [...] on patient's age to complete this topic Care Teams Paver Layer Relationship Specialty Start Date End Date Clinic, [facility] [address] [place] [address] PCP - General 09/16/23
--- OUTSIDE RECORDS SUMMARY | 2024-01-10 22:13 | XMS_ITS | Continuity of Care Document ---
Author Name [facility] Organization [facility] Care Team Providers Care Tumbling And Rolling Supervisor Name Role Phone [facility] Unavailable Unavailable Problems Combined list of problems from [facility] facilities. It does not include entries that were removed or entered in error. Problem Status Onset Date Problem Type Date of Resolution Comments Source Diagnosis: ICD-10-CM H04.123 Dry eye syndrome of bilateral lacrimal glands Active Diagnosis [facility] Diagnosis: ICD-10-CM H40.10X4 Unspecified open-angle glaucoma, indeterminate stage Active Diagnosis [facility] Diagnosis: ICD-10-CM H40.1131 Primary open-angle glaucoma, bilateral, mild stage Active Diagnosis [facility] Diagnosis: ICD-10-CM H90.3 Sensorineural hearing loss, bilateral Active Diagnosis [facility] Diagnosis: ICD-10-CM Z01.118 Encntr for exam of ears and hearing w oth abnormal findings Active Diagnosis [facility] Diagnosis: ICD-10-CM H25.813 Combined forms of age-related cataract, bilateral Active Diagnosis [facility] Diagnosis: ICD-10-CM H90.5 Unspecified sensorineural hearing loss Active Diagnosis [facility] Medications Combined list of outpatient medications from [facility] and [facility] facilities.Medications provided include 1) outpatient [...] Jul 30, 2023 7.5 Jul 30, 2024 [id number] Nov 01, 2023 [facility]Y [facility]AN[facility]WOO D [facility] OPHTHA LMIC ACTIVE 07/30/2024 [id number] Maria REGAN 2023 7.5 [facility] Encounters Combined list of: 1) Encounters from Department of [facility] Affairs facilities going back up to thelast 18 months. 2) Encounters from the Department of Defense facilities going back up to 280 months. Location Location Details Encounter Type Encounter Number Reason For Visit Attending Provider ADM Date DC Date Status Disposition Source [facility] Outpatient Encounter [id number] 10/11 [facility] IS [facility] PRO PHONE CALL 11-20 MIN [id number] Diagnos is: ICD-10- CM H90.5 Unspeci fied sensori neural hearing loss
CLAUDETTE DELACRUZ 11/01 [facility] HEARING AID FITTING/CH ECKING [id number] Diagnos is: ICD-10- CM H90.5 Unspeci fied sensori neural hearing loss
[place] 11/18 [facility] OFFICE O/P NEW LOW 30 MIN [id number] Diagnos is: ICD-10- CM H25.813 Combine d forms of age-rel ated catarac t, bilater al
LUNA REGAN 07/29 [facility] Outpatient Encounter [id number] 08/07 [facility] HEARING AID EXAM BOTH EARS [id number] Diagnos is: ICD-10- CM Z01.118 Encntr for exam of ears and hearing w oth abnorma l finding s
ROSARIO HERNANDEZ AEL F 08/20 [facility] CONFORMITY EVALUATION [id number] Diagnos is: ICD-10- CM H90.3 Sensori neural hearing loss, bilater al
ROSARIO HERNANDEZ AEL F 09/17 [facility] OFFICE O/P EST LOW 20 MIN [id number] Diagnos is: ICD-10- CM H40.113 1 Primary open-an gle glaucom a, bilater al, mild stage<b r/> LUNA REGAN 10/29 [facility] OFF/OP EST SEPTEMBER X REQ PHY/QHP [id number] Diagnos is: ICD-10- CM H40.10X 4 Unspeci fied open-an gle glaucom a, indeter minate stage<b r/> CHICHO WILLIAMSON 11/28 [facility] OFF[facility] O/P NEW MOD 45 MIN [id number] Diagnos is: ICD-10- CM H04.123 Dry eye syndrom e of bilater al lacrima l glands< br/> ALEXIS GARBER 11/28 [facility] Plan of Care List of future care activities from Department of [facility] Affairs facilities. Additional future care activities may be listed in the Assessment and Plan section. Date/Time Care Activity Care Activity Detail Facili ty 02/26/2024 AMBULATORY - SURGERY [facility] - [facility]ERY [facility]
--- OUTSIDE RECORDS SUMMARY | 2024-01-10 22:13 | XMS_ITS | Encounter Summary ---
Author Name [facility] [place] [facility] [place] [facility] [place] Address [address] [place] [address] Support Name Relationship Address Phone NITZA CASTILLO Next of Kin JORJE [address] [place], [place] [phone] NITZA CASTILLO Emergency Contact I [address]AG [place], [place] [phone] Insurance Providers: All historical and current Section [...] PART B Nov 11, 2013 PART B [id number] LETICIA CASTILLO PATIENT MEDICARE (WNR) MEDICARE (M) PART A Jan 12, 2013 PART A [id number] LETICIA CASTILLO PATIENT Selected Encounter This section includes the information on record at [place] for the Encounter. Date/Time Encounter Type Encounter Description Reason Provider Source Nov 29, 2023 08:00 AM OFF/OP EST SEPTEMBER X REQ PHY/QHP OPHTHALMOLOGY ICD-10-CM H40.10X4 Unspecified open-angle glaucoma, indeterminate stage CHICHO WILLIAMSON Encounter Template Text not used by [facility] Assessments - Encounter Diagnoses This section includes the primary and secondary diagnoses documented for the Encounter. Date/Time Primary/Secondary Diagnosis Diagnosis Name Provider Source Nov 29, 2023 08:15 AM PRIMARY Unspecified open-angle glaucoma, indeterminate stage CHICHO WILLIAMSON [facility] Plan of Treatment: Future Appointments (+ 6 months) and Future Tests (+/- 45 days) The Plan of Treatment section includes future care activities for the patient from all [place] treatmentfacilities. This section includes future appointments and future orders which are active, pending or scheduled. Future Appointments This section includes appointments that were scheduled to occur 6 months from the date of the Encounter, up to a maximum of 20 appointments. The data comes from all [place] treatment facilities. Appointment Date/Time Appointment Type Appointme nt Facility Name Feb 26, 2024 10:20 AM AMBULATORY - SURGERY [facility] Encounter Notes: All associated encounter notes This section contains the clinical notes associated to the Encounter. Date/Time Encounter Note(s) Provider Source Nov 29, 2023 08:13 AM OPHTHALMOLOGY TECH GINNA NOTE: LOCAL TITLE: CREDIT CARD SPECIALIST NOTE STANDARD TITLE: CREDIT CARD SPECIALIST NOTE DATE OF NOTE: NOV 29, 2023@08:13 ENTRY DATE: NOV 29, 2023@08:14:02 AUTHOR: CHICHO WILLIAMSON EXP COSIGNER: URGENCY: STATUS: COMPLETED Pt declines VF test today due to vertigo. States when he has done it in the past he has had horrible vertigo for 3 months. /jorge/ CHICHO WILLIAMSON HEALTH SALES COORDINATOR Signed: 11/29/2023 08:15 CHICHO WILLIAMSON [facility]
--- OUTSIDE RECORDS SUMMARY | 2024-01-10 22:13 | XMS_ITS | Encounter Summary ---
Author Name [facility] [place] [facility] [place] [place] Address [address] [place] [address] Support Name Relationship Address Phone NITZA CASTILLO Next of Kin JORJEShira KEITA [place], [place] [phone] NITZA CASTILLO [place] [address] Insurance Providers: All historical and [...] PART B Nov 11, 2013 PART B [id number] LETICIA CASTILLO PATIENT MEDICARE (WNR) MEDICARE (M) PART A Jan 12, 2013 PART A [id number] LETICIA CASTILLO PATIENT Selected Encounter This section includes the information on record at [place] for the Encounter. Date/Time Encounter Type Encounter Description Reason Provider Source Nov 29, 2023 08:30 AM OFFICE O/P NEW MOD 45 MIN OPHTHALMOLOGY ICD-10-CM H04.123 Dry eye syndrome of bilateral lacrimal glands NICOLE GARBER [facility] Encounter Template Text not used by [place] Assessments - Encounter Diagnoses This section includes the primary and secondary diagnoses documented for the Encounter. Date/Time Primary/Secondary Diagnosis Diagnosis Name Provider Source Nov 29, 2023 09:17 AM PRIMARY Dry eye syndrome of bilateral lacrimal glands SHIRLENE,NICOLE [facility] Nov 29, 2023 09:17 AM SECONDARY Age-related nuclear cataract, bilateral NICOLE GARBER [facility] Plan of Treatment: Future Appointments (+ 6 months) and Future Tests (+/- 45 days) The Plan of Treatment section includes future care activities for the patient from all [place] treatmentfacilities. This section includes future appointments and future orders which are active, pending or scheduled. Future Appointments This section includes appointments that were scheduled to occur 6 months from the date of the Encounter, up to a maximum of 20 appointments. The data comes from all [place] treatment facilities. Appointment Date/Time Appointment Type Appointme nt Facility Name Feb 26, 2024 10:20 AM AMBULATORY - SURGERY [facility] Encounter Notes: All associated encounter notes This section contains the clinical notes associated to the Encounter. Date/Time Encounter Note(s) Provider Source Nov 29, 2023 08:39 AM OPHTHALMOLOGY CONS ULT: LOCAL TITLE: OPHTHALMOLOGY IMAGING [facility] OUTPT CONSULT STANDARD TITLE: OPHTHALMOLOGY CONSULT DATE OF NOTE: NOV 29, 2023@08:39 ENTRY DATE: NOV 29, 2023@08:39:40 AUTHOR: BEATRICE WOODWARD EXP COSIGNER: URGENCY: STATUS: COMPLETED Requested test(s) done, OCT of rNFL OU results uploaded to gravity prospecting observer helper for review. /jorge/ SHINE LAI CRA Helicopter Dispatcher Signed: 11/29/2023 08:39 BEATRICE WOODWARD [facility] Nov 29, 2023 08:20 AM OPHTHALMOLOGY TECH NICIAN NOTE: LOCAL TITLE: GREEN MARKETER NOTE STANDARD TITLE: GREEN MARKETER NOTE DATE OF NOTE: NOV 29, 2023@08:20 ENTRY DATE: NOV 29, 2023@08:20:26 AUTHOR: FRANCISCO CARRASCO EXP COSIGNER: URGENCY: STATUS: COMPLETED Eye Start Exam Patient: LETICIA CASTILLO Sex: MALE SSN: [id number] Birthdate: [birth year] Chief complaint: Glaucoma exam. Patient states vision is good. Denies discomfort. Using drops as directed. History of Present Illness: Location: Intensity: Duration: Follow Up Exam Eye Medications Latanoprost nightly BOTH eyes 1000pm Allergies: Patient has answered NKA No new Allergies. Last refraction: Vision: OD:CC(with glasses) OD: 20/20 Pinhole: 20/ Near: 20/ Vision: OS:CC(with glasses) 0S: 20/20-2 Pinhole: 20/ Near: 20/ Current glasses: OD:-1.50 +0.75Z204 Prism: OS:-2.00 +2.01P740 Prism: Add: +2.50 Confrontational Khoury: Full to finger counting: Right: Yes Left: Yes Extra Ocular Movement: Normal Pupils: Right: Round Left: Round Size: Right: 3 Left: 3 React to light: Right: Yes Left: Yes Afferent pupil defect: Right:No Grade: Left: No Grade: Note:double checked IOP RIGHT eye Intra-ocular pressure (IOP): OD: 20 OS: 18 Applanation Dilation: mydriacyl 1% and neosynephrine OU Nov@08:30 Pachymetry: OD: 612 OS: 613 /jorge/ FRANCISCO CARRASCO HEALTH SUPERINTENDENT MECHANICAL Signed: 11/29/2023 08:32 FRANCISCO CARRASCO [facility] Nov 29, 2023 08:12 AM OPHTHALMOLOGY CONS ULT: LOCAL TITLE: OPHTHALMOLOGY CONSULT STANDARD TITLE: OPHTHALMOLOGY CONSULT DATE OF NOTE: NOV 29, 2023@08:12 ENTRY DATE: NOV 29, 2023@08:12:10 AUTHOR: COSTA GARBER COSIGNER: URGENCY: STATUS: COMPLETED Tech notes reviewed and agreed from today. Chief complaint: Glaucoma exam. Patient states vision is good. Denies discomfort. Using drops as directed. Current glasses: OD:-1.50 +0.72B145 Prism: OS:-2.00 +2.42P681 Prism: Intra-ocular pressure (IOP): OD: 20 OS: 18 Applanation Pachymetry: OD: 612 OS: 613 Mental Status: Orientated to time and place. SLE Right eye: lids/lashes: normal conjunctiva/sclera: white and quiet cornea: PEE anterior chamber: deep and quiet iris: normal lens: 1-2+ NS anterior vitreous: quiet SLE Left eye: lids/lashes: normal conjunctiva/sclera: white and quiet cornea: PEE anterior chamber: deep and quiet iris: normal lens: 1-2+ NS anterior vitreous: quiet DFE Right eye: vitreous: quiet optic nerve: pink, 0.1 C/D macula: flat no edema vessels: normal periphery: flat DFE Left eye: vitreous: quiet optic nerve: pink, 0.1 C/D macula: flat no edema vessels: normal periphery: flat OCT RNFL 11/29/23: RE: Temp BDL otherwise WNL, traction superior/inf LE: Temp BDL otherwise WNL, traction superior/inf A/P #1 Glaucoma Suspect? -Unclear where concern for glaucoma exists. Per pt he had a test on his eye and was told her might have glaucoma and started on latanoprost. The patient states the highest his IOP has ever been was 20. We only have minimal records from outside OD treating pt. Exam today shows small(0.1) optic nerves with no clear findings suggestive of glaucoma. OCT RNFL is not suggestive of OAG, but does have some mild tractional artifact. -I do not think this pt requires treatment and would rec trial of stopping latano. RTC in 3 months for V/T/Disc Photos #2 NS OU -Not VS #3 NURY OU -ATT /es/ Costa Garber DO Staff Surgeon Signed: 11/29/2023 09:17 COSTA GARBER [facility]
--- NOTE | 2024-01-10 22:17 | ED.GENADULT ---
HPI - General Adult General Chief complaint: Flank Pain Stated complaint: Poss kidney stones-Hx of Time Seen by Provider: 01/10/24 20:45 History of Present Illness HPI narrative: This 78-year-old male comes in with left flank and abdominal pain that feels like prior episode of kidney stone. He does not report any nausea or vomiting. Initially his pain was much better at the time that I visited him. He does not report any dysuria symptoms. Related Data Home Medications ?Medication ?Instructions ?Recorded ?Confirmed latanoprost 0.005 % eye drops drp ophthalmic (eye) 12/07/21 09/24/23 JOSELITO omega PO 10/25/22 09/24/23 aspirin 81 mg tablet,delayed 81 mg PO QDAY 10/25/22 09/24/23 release (Adult Aspirin Regimen) multivitamin 1 tab PO QAM 10/25/22 09/24/23 vitamin A-vit C-vit E-zinc-Cu tab PO DAILY 10/25/22 09/24/23 tablet [place]-3 PO 09/24/23 Previous Rx's ?Medication ?Instructions ?Recorded rosuvastatin 5 mg tablet 5 mg PO QDAY #90 tabs 11/14/23 lisinopril 10 mg tablet 10 mg PO QDAY #90 tabs 11/16/23 Allergies Allergy/AdvReac Type Severity Reaction Status Date / Time No Known Drug Allergies Allergy Verified 09/24/23 09:32 Review of Systems Status of ROS: Reports: 10 or more systems reviewed and unremarkable except as noted in History and below Narrative: Constitutional: No fevers, no weight gain or loss. Eyes: No discharge. No vision changes. HENT: No congestion, no sore throat, no ear pain. Cardiovascular: No chest pain, no palpitations. Respiratory: No shortness of breath, no wheezes, no cough. Gastrointestinal: No vomiting, no diarrhea. Left-sided abdominal pain and flank pain. Genitourinary: No dysuria, no hematuria. Musculoskeletal: Normal range of motion. Skin: No rashes, no pruritis. Neurological: No dizziness, weakness, sensory change, speech change. Endo/Heme/Allergies: No bruising or bleeding. No polydipsia. Pysch: no suicidality, no anxiety, no insomnia. All other systems reviewed and are negative. [facility] Medical History (Updated 08/29/24 @ 22:25 by Charles Story MD) Cerumen impaction ?H61.20 - Impacted cerumen, unspecified ear (ICD-10) Metacarpal bone fracture ?S62.309A - Unspecified fracture of unspecified metacarpal bone, initial encounter for closed fracture (ICD-10) Screening for prostate cancer ?Z12.5 - Encounter for screening for malignant neoplasm of prostate (ICD-10) Hyperkalemia ?E87.5 - Hyperkalemia (ICD-10) Former smoker, stopped smoking in distant past ?Z87.891 - Personal history of nicotine dependence (ICD-10) Squamous cell carcinoma of scalp ?C44.42 - Squamous cell carcinoma of skin of scalp and neck (ICD-10) Preventative health care ?Z00.00 - Encounter for general adult medical examination without abnormal findings (ICD-10) Lumbar herniated disc ?M51.26 - Other intervertebral disc displacement, lumbar region (ICD-10) Family history of ischemic heart disease (11/11/12) ?Z82.49 - Family history of ischemic heart disease and other diseases of the circulatory system (ICD-10) Family history of cerebrovascular accident (CVA) (11/11/12) ?Z82.3 - Family history of stroke (ICD-10) Family History (Updated 12/22/21 @ 12:07 by Elsy Segovia) Father Stroke Myocardial infarction Brother Myocardial infarction Social History (Updated 11/14/23 @ 11:21 by Kajal Pardo MD) Narrative: [place] vet, exercises frequently/daily Smoking Status: Never smoker Little interest or pleasure in doing things: not at all Feeling down, depressed, or hopeless: not at all Exam Narrative: Exam Narrative: Constitutional: Well-developed, well-nourished, no acute distress. HEENT: Normocephalic, atraumatic. Neck: Normal range of motion. Nontender. Supple. Heart: Regular. No murmurs. Normal rate. Intact distal pulses. Lungs: Clear to auscultation. No chest discomfort. No wheezes, rhonchi, or rales. Abdomen: Normal bowel sounds. Diffuse left abdomen and flank pain. No rebound tenderness. Genitalia: Deferred. Back: No midline tenderness. Normal range of motion. Extremities: Normal range of motion. No injury. Skin: Intact. No rash. Warm. No erythema or pallor. Neurologic: No altered sensation. No weakness. Alert and oriented. Psychiatric: No suicidality. No anxiety or depression. No insomnia. Nursing notes and vitals signs are reviewed. Const: Vital Signs, click to edit/add: Vital Signs - 24 hr 01/10/24 20:48 Temperature 97.1 F L Pulse Rate [Pulse Oximeter] 69 Respiratory Rate 16 Blood Pressure [Ri ght Upper Arm] 142/106 H Pulse Oximetry 99 Oxygen Delivery Me thod Room Air Course Vital Signs Vital signs: Initial Vital Signs Temperature 97.1 F L 01/10/24 20:48 Temperature Source Temporal Artery Scan 01/10/24 20:48 Pulse Rate 69 01/10/24 20:48 Respiratory Rate 16 01/10/24 20:48 Blood Pressure 142/106 H 01/10/24 20:48 Blood Pressure Mean 118 H 01/10/24 20:48 Blood Pressure Position Sitting 01/10/24 20:48 Pulse Oximetry 99 01/10/24 20:48 Oxygen Delivery Method Room Air 01/10/24 20:48 Vital Signs Temperature 97.1 F L 01/10/24 20:48 Pulse Rate 69 01/10/24 20:48 Respiratory Rate 16 01/10/24 20:48 Blood Pressure 142/106 H 01/10/24 20:48 Pulse Oximetry 99 01/10/24 20:48 Oxygen Delivery Method Room Air 01/10/24 20:48 Temperature 97.1 F L 01/10/24 20:48 Pulse Rate 69 01/10/24 20:48 Respiratory Rate 16 01/10/24 20:48 Blood Pressure 142/106 H 01/10/24 20:48 Pulse Oximetry 99 01/10/24 20:48 Oxygen Delivery Method Room Air 01/10/24 20:48 Medications Administered Medications: Discontinued Medications Generic Name Dose Route Start Last Admin Trade Name Freq PRN Reason Stop Dose Admin Hydromorphone HCl 0.5 mg 01/10/24 22:20 01/10/24 22:55 Hydromorphone 0.5 Mg/0.5 Ml Inj IVP 01/10/24 22:21 0.5 mg ONCE ONE Administration Ketorolac Tromethamine 15 mg 01/10/24 22:20 01/10/24 22:56 Ketorolac 30 Mg/Ml Inj IVP 01/10/24 22:21 15 mg ONCE ONE Administration Ondansetron HCl 4 mg 01/10/24 22:20 01/10/24 22:56 Ondansetron 2 Mg/Ml Inj IVP 01/10/24 22:21 4 mg ONCE ONE Administration Medical Decision Making MDM Narrative Medical decision making narrative: This patient comes in reporting left flank and abdominal pain suspicious for kidney stone as he has had these in the past. At the time initially visited him he states that his pain was doing better. He did not request any medications at that time but after the CT scan was obtained he began to have more pain. An IV was established where he received Dilaudid, Toradol, and Zofran. CT imaging returns with evidence of a distal left ureteral stone measuring about 5 mm. There is mild obstruction related to this. The patient is okay to be discharged home and received [facility] prescriptions for Toradol, Chilcoot, and Zofran. Lab Data Labs: Lab Results 01/10/24 Range/Units 22:13 Urine Color Red A (Yellow) Urine Appearance Clear (Clear) Urine pH 7.0 (5.0-8.5) Ur Specific [place] 1.015 (1.000-1.030) Urine Protein 1+ A (Negative) Urine Glucose (UA) Negative (Negative) Urine Ketones Negative (Negative) Urine Blood 3+ A (Negative) Urine Nitrite Negative (Negative) Urine Bilirubin Negative (Negative) Urine Urobilinogen 0.2 (0.2-1.0) Ur Leukocyte Esterase 1+ A (Negative) Urine RBC 25-50 A (0-2) Urine WBC 5-10 A (0-5) Ur Squamous Epith Cells Few (None-Few) Urine Bacteria Few A (None) Urine Mucus Few A (None) Imaging Data CT scan - abdomen: Radiologist's impression: 1. Obstructing right distal ureteral stone measures 5 millimeters with mild hydronephrosis. 2. Additional nonobstructing bilateral renal stones are present. Discharge Plan Discharge Clinical Impression: Calculus, ureteral Patient Disposition: Home, Self-Care Condition: Stable Additional Instructions: Take medication as prescribed and needed. Follow up with urologist if not improving or return if worsening symptoms happen. Prescriptions: No Action aspirin [Adult Aspirin Regimen] 81 mg tablet,delayed release (DR/EC) 81 mg PO QDAY JOSELITO omega PO Rx Instructions: 3 tablets once a day multivitamin Tablet 1 tab PO QAM vitamin A-vit C-vit E-zinc-Cu Tablet PO DAILY [place]wood-3 PO rosuvastatin 5 mg tablet 5 mg PO QDAY Qty: 90 3RF Patient Comments: TAKE ONE TABLET BY MOUTH DAILY latanoprost 0.005 % drops ophthalmic (eye) Patient Comments: PLACE ONE DROP INTO EACH EYE EVERY NIGHT. lisinopril 10 mg tablet 10 mg PO QDAY Qty: 90 3RF Patient Comments: TAKE 1 TABLET BY MOUTH DAILY Follow Up/Referrals: Kajal Pardo MD [Primary Care Provider] - Stand Alone [facility]
[2024-01-10 22:21] LABS: Appearance Urine Clear (Clear); Bilirubin Urine Negative (Negative); Blood Urine 3+ (Negative); Color Urine Red (Yellow); Glucose Urine Negative (Negative); Ketones Urine Negative (Negative); Leukocyte Esterase Urine 1+ (Negative); Nitrite Urine Negative (Negative); Protein Urine 1+ (Negative); Specific Gravity Urine 1.015 (1.000-1.030); Urobilinogen Urine 0.2 (0.2-1.0)
[2024-01-10 22:55] LABS: Bacteria Urine Few; Mucus Urine Few; RBC Urine 25-50 (0-2); Squamous Epithelial Cell Urine Few (None-Few)
[2024-01-10] MEDS: HYDROmorphone 0.5 mg/0.5 ml inj IVP (22:55)
[2024-01-10] MEDS: ONDANSETRON 2 MG/ML inj 4 MG IVP (22:56)
[2024-01-10] MEDS: KETOROLAC 30 MG/ML inj 15 MG IVP (22:56)
== END 2024-01-10 23:23 | disposition home or self-care (01) ==
PROVIDERS: Emergency Provider Emergency Medicine Emergency Medical Services; PCP Emergency Medicine
DX: N20.1 Calculus of ureter (principal)
CPT/HCPCS: 74176; 81001; 87086; 96374; 96375; 99284; J1170; J1885; J2405

== ENCOUNTER 2024-07-10 11:42 | Outpatient (CLI) | payer MEDICARE, SELFPAY | END 2024-07-10 11:43 | disposition home or self-care (01) | LOC: LKVREF 11:43 | PROVIDERS: PCP Emergency Medicine; Visit Provider Emergency Medicine | DX: I10 Essential (primary) hypertension (principal) | CPT/HCPCS: 80048 ==

== ENCOUNTER 2024-07-29 11:37 | Outpatient (CLI) | payer MEDICARE, SELFPAY | END 2024-07-29 11:38 | disposition home or self-care (01) | PROVIDERS: PCP Emergency Medicine; Visit Provider Emergency Medicine | DX: I10 Essential (primary) hypertension (principal); R33.9 Retention of urine, unspecified; Z01.818 Encounter for other preprocedural examination | CPT/HCPCS: 80048; 87086 ==

== ENCOUNTER 2024-12-03 08:17 | Outpatient (CLI) | payer MEDICARE, SELFPAY | END 2024-12-03 08:18 | disposition home or self-care (01) | LOC: NFLDREF 12-04 02:51 | PROVIDERS: PCP Emergency Medicine; Referring Provider Emergency Medicine; Visit Provider Emergency Medicine | DX: E78.2 Mixed hyperlipidemia (principal); I10 Essential (primary) hypertension; Z12.5 Encounter for screening for malignant neoplasm of prostate | CPT/HCPCS: 80053; 80061; G0103 ==